=== PATIENT | female | born 1950 | race Caucasian/White ===

== ENCOUNTER 2018-09-20 05:30 | Day surgery (SDC) | payer MEDICARE ==
[2018-09-19 13:23] VITALS: BP 105/50
[2018-09-19 13:52] LABS: BASOPHILS % (AUTO) 0.5 % (0.0-5.0); EOSINOPHILS % (AUTO) 1.6 % (0.0-8.0); HEMATOCRIT 53.5 % (36-48); LYMPHOCYTES % (AUTO) 26.9 % (21.0-51.0); MEAN CORPUSCULAR HEMOGLOBIN 32.7 pg (27.0-33.0); MEAN CORPUSCULAR HGB CONC 33.4 g/dL (32.0-36.0); MONOCYTES % (AUTO) 6.3 % (3.0-13.0); NEUTROPHILS % (AUTO) 64.7 % (40.0-77.0); PLATELET COUNT (AUTO) 117 K/uL (130-400); RED BLOOD CELL COUNT(AUTO) 5.46 MIL/uL (4.00-5.50); WHITE BLOOD COUNT (AUTO) 9.1 K/uL (4.8-10.8)
[2018-09-19 13:59] LABS: CREATININE 0.8 mg/dL (0.5-1.5); POTASSIUM 4.4 mmol/L (3.5-5.1)
--- NOTE | 2018-09-19 15:50 | NUR ---
ABNORMAL LABS SPOKE WITH DR YSABEL HELLER STAFF,HGB-17.9,HCT-53.5,PLT-117,,WILL RELATE TO DR GRADY
--- NOTE | 2018-09-19 15:58 | NUR ---
DR YSABEL HELLER STAFF RETURNS CALL ,NO ORDERS PER DR GRADY IN REGARDS TO LABS
[2018-09-20] VITALS (18 sets, daily range): BP systolic 110–199; BP diastolic 48–82
[~2018-09-20] VITALS: Ht 162.6 cm; Wt 102.1 kg
[~2018-09-20 05:30] MED LIST: ASPI-555 PO; FISH1CAP27 PO; GEMF600T5 PO; MAGN250T10 PO; calcium PO
[2018-09-20] MEDS ORDERED: LACTATED RINGERS 1000ML 1,000 ML IV ONE (06:18)
[2018-09-20] MEDS ORDERED: LIDOCAINE PF 2% 5ML ABBOJECT ONE (06:39)
[2018-09-20] MEDS ORDERED: MIDAZOLAM HCL 1 MG/ML 2ML VIAL ONE (06:39)
[2018-09-20] MEDS ORDERED: SUCCINYLCHOLINE 200MG/10ML SYR ONE (06:39)
[2018-09-20] MEDS ORDERED: PROPOFOL 10 MG/ML 20ML VIAL IV ONE (06:39)
[2018-09-20] MEDS ORDERED: ROCURONIUM 10MG/1ML SYR 10 MG/ML ML ONE (06:40)
[2018-09-20] MEDS ORDERED: ONDANSETRON HCL 4 MG/2 ML VIAL ONE (06:41)
[2018-09-20] MEDS ORDERED: FENTANYL CITRATE PF 50 MCG/1 ML 2ML VIAL ONE (06:42)
[2018-09-20] MEDS ORDERED: FLUMAZENIL 0.1MG/1ML 5ML VIAL IV ONE (07:32)
[2018-09-20] MEDS ORDERED: NALOXONE HCL 0.4 MG/1 ML ML ONE (07:46)
[2018-09-20] MEDS ORDERED: LACTATED RINGERS 1000ML 1,000 ML IV SCH (08:00)
[2018-09-20] MEDS ORDERED: IPRATROPIUM/ALBUTEROL SULFATE 3 ML SOLUTION IH ONE (08:23)
--- NOTE | 2018-09-20 08:50 | NUR ---
RECEIVE PT RECEIVED FROM PACU VIA STRETCHER. AWAKE ALERT ORIENTED X3. PT DENIES DIFFICULTY OF BREATHING, NO SHORTNESS OF BREATH NOTED, NOT IN ANY RESPIRATORY DISTRESS. PT ENCOURAGED TO PERFORM INCENTIVE SPIROMETRY INSTRUCTED BY RT IN PACU. PT TOLERATING WELL. FRANCESCA PAD SMALL AMOUNT OF PINKISH DISCHARGE. NO COMPLAINTS MADE. CALL FLOR WITHIN REACH. WILL FURTHER MONITOR PT. WILL CALL FOR FRIEND TO COME IN.
--- NOTE | 2018-09-20 09:00 | NUR ---
HOME MEDICATIONS DR. GRADY IN SURGERY, CALLED OFFICE, SPOKE WITH ARRON LAMB NP. PER Eugene LAMB, PT MAY RESUME HER HOME MEDICATIONS EXCEPT FOR ASPIRIN, STOP ASPIRIN OF NOW, WILL DISCUSS ASPIRIN WITH PT ON FOLLOW UP APPT.
--- NOTE | 2018-09-20 09:20 | NUR ---
ASSESS PT AWAKE ALERT, PERFORMING IS, ABLE TO COUGH STRONG.
--- NOTE | 2018-09-20 09:25 | NUR ---
ACTIVITY PT REPOSITIONED IN STRETCHER. FRANCESCA PAD CHANGED. NO HEAVY VAGINAL BLEEDING NOTED, PAD REMAINED WITH THE SAME AMOUNT PINK DISCHARGE.
--- NOTE | 2018-09-20 09:55 | NUR ---
ANESTHESIA CALLED Davey WALLER CRNA TO EVALUATE PT. PT WANTS TO GO HOME, STATES SHE FEELS SO MUCH BETTER, MORE ALERT AND ABLE TO PERFORM I.S. MORE WITH EASE.
--- NOTE | 2018-09-20 10:05 | NUR ---
NOTE Davey WALLER CRNA HERE TO EVALUATE AND TALK TO PT. PER WINSTON, PT MAY BE DISCHARGED HOME.
--- NOTE | 2018-09-20 10:25 | NUR ---
DISCHARGE PT DISCHARGED VIA WHEELCHAIR WITH FRIEND RAISA. PT STABLE. NO COMPLAINTS MADE. DENIES DIFFICULTY BREATHING, NO SOB OR ANY RESPIRATORY DISTRESS NOTED. O2 SATS UP TO 95% ON ROOM AIR PRIOR TO DISCHARGE. FRANCESCA PAD SMALL AMOUNT OF PINKISH/BLOODY DISCHARGE, CHANGED PRIOR TO DISCHARGE. DISCHARGE INSTRUCTIONS GIVEN TO FRIEND RAISA AND TO PT, BOTH VERBALIZED UNDERSTANDING.
== END 2018-09-20 10:25 | disposition home or self-care (01) ==
LOC: DAH 05:30
PROVIDERS: ATTEND Obstetrics & Gynecology
DX: N95.0 Postmenopausal bleeding (principal); Z68.37 Body mass index [BMI] 37.0-37.9, adult; Z79.899 Other long term (current) drug therapy; Z79.01 Long term (current) use of anticoagulants; E66.01 Morbid (severe) obesity due to excess calories; I10 Essential (primary) hypertension
CPT/HCPCS: 36415; 58558; 80048; 85025; 86850; 86900; 86901; 88305; 88341; 88342; 88360; 94640; A4351; J0330; J2001; J2250; J2310; J2405; J2704; J3010; J3490; J7030; J7120

== ENCOUNTER → 2023-12-04 | Outpatient (CLI) | payer MEDICARE ==
[~2023-12-04] MED LIST changes: -ASPI-555 PO; -GEMF600T5 PO; +GEMF600T89 PO
== END | disposition home or self-care (01) ==
LOC: SHCH 09:58
PROVIDERS: ATTEND Internal Medicine Cardiovascular Disease
DX: I87.2 Venous insufficiency (chronic) (peripheral) (principal); R20.2 Paresthesia of skin; R22.43 Localized swelling, mass and lump, lower limb, bilateral
CPT/HCPCS: 93970

== ENCOUNTER → 2023-12-08 | Outpatient (CLI) | payer MEDICARE | END | disposition home or self-care (01) | LOC: RAH 13:17 | PROVIDERS: ATTEND Physical Medicine & Rehabilitation | DX: M47.816 Spondylosis without myelopathy or radiculopathy, lumbar region (principal); M51.86 Other intervertebral disc disorders, lumbar region; M48.05 Spinal stenosis, thoracolumbar region; M48.08 Spinal stenosis, sacral and sacrococcygeal region; M48.062 Spinal stenosis, lumbar region with neurogenic claudication; M79.661 Pain in right lower leg | CPT/HCPCS: 72148 ==

== ENCOUNTER → 2023-12-17 | Outpatient (CLI) | payer MEDICARE ==
[~2023-12-17] MED LIST changes: +IOHEXOL 350 MG/ML 100ML INFUS..BTL IV ONE; +METOPROLOL TARTRATE 1 MG/ML 5ML VIAL IV ONE
== END | disposition home or self-care (01) ==
LOC: RAH 08:27
PROVIDERS: ATTEND Internal Medicine Cardiovascular Disease
DX: R06.09 Other forms of dyspnea (principal)
CPT/HCPCS: 75574; J3490; Q9967

== ENCOUNTER → 2024-03-01 | Outpatient (CLI) | payer MEDICARE ==
[~2024-03-01] MED LIST changes: -IOHEXOL 350 MG/ML 100ML INFUS..BTL IV ONE; -METOPROLOL TARTRATE 1 MG/ML 5ML VIAL IV ONE
== END | disposition home or self-care (01) ==
LOC: RAH 15:03
PROVIDERS: ATTEND Physical Medicine & Rehabilitation
DX: M47.814 Spondylosis without myelopathy or radiculopathy, thoracic region (principal); M25.78 Osteophyte, vertebrae; G95.0 Syringomyelia and syringobulbia
CPT/HCPCS: 72146

== ENCOUNTER → 2024-05-26 | Outpatient (CLI) | payer MEDICARE ==
[2024-05-26 12:30] LABS: BASOPHILS # (AUTO) 0.03 K/uL (0.00-0.20); BASOPHILS % (AUTO) 0.4 % (0.0-5.0); EOSINOPHILS # (AUTO) 0.07 K/uL (0.00-0.70); EOSINOPHILS % (AUTO) 0.9 % (0.0-8.0); HEMATOCRIT 48.1 % (36-48); IMMATURE GRANULOCYTE ABSOLUTE 0.01 K/uL (0-1); LYMPHOCYTES % (AUTO) 27.5 % (21.0-51.0); MEAN CORPUSCULAR HEMOGLOBIN 31.4 pg (27.0-33.0); MEAN CORPUSCULAR HGB CONC 33.1 g/dL (32.0-36.0); MEAN CORPUSCULAR VOLUME 94.9 fL (79-99); MONOCYTES # (AUTO) 0.6 K/uL (0.1-1.0); MONOCYTES % (AUTO) 8.1 % (3.0-13.0); NEUTROPHILS # (AUTO) 4.7 K/uL (1.8-7.7); PLATELET COUNT (AUTO) 93 K/uL (130-400); RED BLOOD CELL COUNT(AUTO) 5.07 MIL/uL (4.00-5.50); RED CELL DISTRIBUTION WIDTH 12.8 % (11.0-15.5); WHITE BLOOD COUNT (AUTO) 7.4 K/uL (4.8-10.8)
[2024-05-26 12:37] LABS: CREATININE 0.9 mg/dL (0.5-1.0); POTASSIUM 4.4 mmol/L (3.5-5.1)
[2024-05-26 12:38] LABS: INR 1.01 (0.85-1.15); PROTHROMBIN TIME 10.9 SEC (9.6-11.6)
[2024-05-26 12:39] LABS: PARTIAL THROMBOPLASTIN TIME 27.3 SEC (26.3-35.5)
== END | disposition home or self-care (01) ==
LOC: LAB 10:13
PROVIDERS: ATTEND Internal Medicine Cardiovascular Disease
DX: Z01.812 Encounter for preprocedural laboratory examination (principal); I87.1 Compression of vein; Z79.899 Other long term (current) drug therapy; M79.89 Other specified soft tissue disorders
CPT/HCPCS: 36415; 80048; 85025; 85610; 85730